=== PATIENT | male | born 1980 | race Two or more races ===

== ENCOUNTER 2024-10-27 18:24 | Emergency (ER) | payer OTHER ==
[~2024-10-27] VITALS: Ht 182.9 cm; Wt 102.0 kg
[2024-10-27 18:32] VITALS: TEMP 98.1
[2024-10-27 19:05] VITALS: BP 126/74; PULSE 67; RESP 18; O2SAT 99
[2024-10-27] MEDS: LIDOCAINE/PF 1% 2 ML VIAL IM ONE (19:21)
[2024-10-27] MEDS: BACITRACIN 0.9 GM PACKET OINTMENT TP ONE (19:21)
[2024-10-27] MEDS: CefTRIAXone SODIUM 1 GM/VIAL IM ONE (19:21)
[2024-10-27] MEDS: LIDOCAINE 1% 10 ML VIAL SQ ONE (19:22)
[2024-10-27] MEDS: AMOX TR/POT CLAV 875 MG/125 MG TABLET PO ONE (19:52)
== END 2024-10-27 20:09 ==
LOC: EMS 18:24
DX: S61.212A Laceration without foreign body of right middle finger without damage to nail, initial encounter (principal); Y08.89XA Assault by other specified means, initial encounter; Y93.89 Activity, other specified; Y92.89 Other specified places as the place of occurrence of the external cause; Y99.8 Other external cause status
CPT/HCPCS: 99283; 73140; 12002; 96372; J0696; J3490; 12032; 99284